=== PATIENT | female | born 1955 | race Caucasian/White ===

== ENCOUNTER → 2017-01-19 | Outpatient (CLI) | payer MEDICARE, MEDICAID ==
[~2017-01-19] MED LIST: 3N1 COMMODE MC; ASPI-781 PO; CARV25TA97 PO; METF500T4 PO; RAMI5CAP23 PO; SIMV20TA PO; WALK1EAC23 MC
--- NOTE | 2017-01-20 10:55 | RADRPT ---
PROCEDURE: XR pelvis/left hip. CLINICAL INDICATION: Hip pain TECHNIQUE: AP pelvis/lateral left hip view performed. COMPARISON: 09/11/2015 FINDINGS: There is a right total hip replacement. There is no evidence of loosening of the prosthesis. No hard lovelace failure is identified. There is mild left hip osteoarthrosis. This is associated with joint space narrowing. There is norm al osseous mineralization. No fractures or osseous lesions are identified. The soft tissues are un remarkable. IMPRESSION: Right total hip replacement. Mild left hip osteoarthrosis. RPTAT: HGDB .Norman Kwon MD, Date Time Electronically viewed and signed by .Norman Kwon MD, on 01/20/2017 10:55 .B/
--- NOTE | 2017-01-20 10:56 | RADRPT ---
PROCEDURE: XR left knee. CLINICAL INDICATION: Knee pain TECHNIQUE: AP weightbearing, lateral weightbearing and sunrise views are available for review. COMPARISON: None available FINDINGS: There is mild to moderate osteoarthrosis involving the medial tibial femoral compartment, lateral ti bial femoral compartment and patellofemoral compartment. This is associated with joint space narrowi ng, subchondral sclerosis and osteophytosis. There is otherwise normal mineralization, architecture and alignment. No fractures are identified. No osseous lesions are identified. The soft tissues are unremarkable. IMPRESSION: Mild to moderate osteoarthrosis involving the medial tibial femoral compartment, lateral tibial femo ral compartment and patellofemoral compartment. RPTAT: HGDB .Noramn Kwon MD, MD Date Time Electronically viewed and signed by .Norman Kwon MD, on 01/20/2017 10:56 .B/
== END | disposition home or self-care (01) ==
LOC: HKI 13:36
DX: M25.552 Pain in left hip (principal); M16.12 Unilateral primary osteoarthritis, left hip; Z96.641 Presence of right artificial hip joint; M25.562 Pain in left knee; M17.12 Unilateral primary osteoarthritis, left knee
CPT/HCPCS: 20610; 73502; 73562; G0463

== ENCOUNTER 2017-03-24 21:16 | Emergency (ER) | payer MEDICARE, OTHER ==
[~2017-03-24] VITALS: Ht 154.9 cm; Wt 90.9 kg
[2017-03-24 21:26] VITALS: Ht 154.9 cm; Wt 90.9 kg
--- NOTE | 2017-03-24 22:52 | ERD ---
ER Documentation Chief Complaint Date/Time DATE: 03/24/17 TIME: 22:47 Chief Complaint RT LEG PAIN & SWELLING X2 DAYS DENIES TRAUMA NO SOB HPI 61-year-old female with a history of diabetes presents with right-sided leg pain and swelling that started today. She states that it was worse on the right lateral ankle with foot swelling and ankle swelling. She states that note was noticed first when she was driving unchanging from break to paddle, worse in movement and achy. She has no calf pain no calf swelling. She has no fevers or chills. ROS All systems reviewed and are negative except as per history of present illness. Medications Home Meds Active Scripts Acetaminophen* (Tylophen*) 500 Mg Capsule, 1 CAP PO Q6H Y for PAIN AND OR ELEVATED TEMP, #20 CAP Prov:MAGGY SHELTON PA-C 03/24/17 3 N 1 Commode* (3 N 1 Commode*) 1 Each Dme, 1 EACH MC DIRECTED, #1 DME 0 Refills Prov:RUFUS RODRÍGUEZ 03/04/15 Front Wheel Walker* (Front Wheel Walker*) 1 Each Dme, 1 EACH MC DIRECTED, #1 DME 0 Refills Prov:RUFUS RODRÍGUEZ 03/04/15 Aspirin* (Ecotrin*) 325 Mg Tabec, 325 MG PO BID for 45 Days Prov:RUFUS RODRÍGUEZ 03/04/15 Reported Medications Carvedilol* (Coreg*) 25 Mg Tablet, 25 MG PO BID, TAB 03/01/15 Carvedilol* (Coreg*) 25 Mg Tablet, 25 MG PO DAILY, TAB 03/01/15 Ramipril (Altace) 5 Mg Capsule, 5 MG PO HS, CAP 03/01/15 Simvastatin* (Zocor*) 20 Mg Tablet, 20 MG PO HS, TAB 03/01/15 Metformin* (Glucophage*) 500 Mg Tab, 500 MG PO TID, TAB 03/01/15 Allergies Allergies: Coded Allergies: Iodine and Iodide Containing Produc (Verified Allergy, Unknown, ANAPHYLACTIC, 03/01/15) PMhx/Soc History of Surgery: Yes (L knee 2007, post lipoma resection RUE 2009, appendectomy) Anesthesia Reaction: No Hx Neurological Disorder: No Hx Respiratory Disorders: No Hx Psychiatric Problems: No Hx Miscellaneous Medical Probl: Yes (HTN, diabetes, hx of nephritis 20 yrs ago , hyperlipidemia) Hx Alcohol Use: No Hx Substance Use: No Hx Tobacco Use: No Smoking Status: Never smoker Physical Exam Vitals Vital Signs Date Time Temp Pulse Resp B/P Pulse Ox O2 Delivery O2 Flow Rate FiO2 03/24/17 21:26 97.8 80 18 163/91 95 Physical Exam General: Well-developed, well-nourished. The patient appears in no acute distress. HEENT: Head is normocephalic, atraumatic. No scleral icterus. Neck: Supple. Nontender. Lungs: Clear to auscultation. Normal air movement. Heart: Regular rate and rhythm. S1 and S2 are normal. No murmurs, gallops, or rubs. Abdomen: Nondistended. Soft nontender. Extremities: No clubbing or cyanosis. Moving extremities 4, no weakness, negative Homans sign, there is swelling over the right lateral ankle that goes to the dorsum of the foot. Pulses 2+ bilaterally, there is no erythema or warmth. Neurologic: Alert and oriented 3. No focal deficits. Normal speech and gait. Skin: Normal turgor. No rash or lesions. Results 24 hrs PROCEDURE: Ultrasound examination of the right lower extremity with Doppler. CLINICAL INDICATION: Right leg pain and swelling. TECHNIQUE: Multiple sonographic images of the right lower extremity were performed with garg scale and color Doppler. COMPARISON: None. FINDINGS: The right common femoral, superficial femoral and popliteal veins demonstrate normal color flow, waveforms, compression and response augmentation. There is no evidence of deep venous thrombosis. IMPRESSION: No evidence of deep venous thrombosis within the right lower extremity. Signed By: Álvaro Hodges M.D 03/24/2017 11:17:02 PM PROCEDURE: X-ray right ankle CLINICAL INDICATION: Trauma to right ankle, with reference marker directed towards the tip of the lateral malleolus. TECHNIQUE: 3 views right ankle COMPARISON: None FINDINGS: No acute fracture or dislocation. Soft tissue swelling over the lateral malleolus and anterior ankle. Plantar calcaneal enthesophyte. IMPRESSION: No acute fracture. RPTAT: UU Signed By: Barnden Thomas MD 03/24/2017 11:12:55 PM Procedures/MDM 61-year-old female presents with right-sided lower leg pain, patient's pain is localized to the lateral ankle, with swelling. X-rays are normal, no evidence of DVT, no fracture dislocation. At this time there is no warmth or erythema, there are no signs of cellulitis. Patient states that the pain started after she started driving, likely musculoskeletal injury, and ankle sprain. Patient's blood pressure was elevated (>120/80) but appears stable without evidence of hypertension emergency or urgency. The patient was counseled about the risks of hypertension and urged to pursue outpatient monitoring and therapy within a week with their primary care physician. Departure Diagnosis: Primary Impression: Right leg pain Condition: Good MAGGY SHELTON PA-C Mar 24, 2017 22:52
[2017-03-24] MEDS ORDERED: ACET500C5 PO (23:37)
[2017-03-25 00:12] VITALS: BP 152/69; PULSE 83; RESP 16; TEMP 97.9
--- NOTE | 2017-03-25 09:59 | RADRPT ---
PROCEDURE: Ultrasound examination of the right lower extremity with Doppler. CLINICAL INDICATION: Right leg pain and swelling. TECHNIQUE: Multiple sonographic images of the right lower extremity were performed with garg scal e and color Doppler. COMPARISON: None. FINDINGS: The right common femoral, superficial femoral and popliteal veins demonstrate normal color flow, wav eforms, compression and response augmentation. There is no evidence of deep venous thrombosis. IMPRESSION: No evidence of deep venous thrombosis within the right lower extremity. .Álvaro Hodges MD, MD Date Time Electronically viewed and signed by .Álvaro Hodges MD, MD on 03/24/2017 23:17 .T/
--- NOTE | 2017-03-25 09:59 | RADRPT ---
PROCEDURE: X-ray right ankle CLINICAL INDICATION: Trauma to right ankle, with reference marker directed towards the tip of the lateral malleolus. TECHNIQUE: 3 views right ankle COMPARISON: None FINDINGS: No acute fracture or dislocation. Soft tissue swelling over the lateral malleolus and anterior ankl e. Plantar calcaneal enthesophyte. IMPRESSION: No acute fracture. RPTAT: UU Physician Anna Date Time Electronically viewed and signed by Hugo Thomas Physician on 03/24/2017 23:12 RS/
== END 2017-03-25 00:13 | disposition home or self-care (01) ==
LOC: FTE 21:16
DX: M25.571 Pain in right ankle and joints of right foot (principal); I10 Essential (primary) hypertension; E11.9 Type 2 diabetes mellitus without complications; Z79.82 Long term (current) use of aspirin; Z79.84 Long term (current) use of oral hypoglycemic drugs
CPT/HCPCS: 93971

== ENCOUNTER → 2017-05-27 | Outpatient (CLI) | payer MEDICARE, OTHER ==
[~2017-05-27] MED LIST changes: +ACET500C5 PO
--- NOTE | 2017-05-27 11:23 | RADRPT ---
PROCEDURE: XR Knees. CLINICAL INDICATION: Pain. TECHNIQUE: AP, lateral, and sunrise views of the bilateral knees are available for review. COMPARISON: None available FINDINGS: there are mild osteoarthritic changes in the bilateral knees most notable in the medial and patellof emoral compartments with joint space narrowing and small osteophytes. There is no acute fracture, di slocation or osteolytic lesions. . No radiopaque foreign body is identified. Alignment is anatomic . No significant joint effusion is identified. IMPRESSION: 1. Mild osteoarthritis of the medial and patellofemoral compartments of the bilateral knees.. 2. No acute fracture or dislocation is seen. RPTAT: QQ .Barrett Carrillo MD, MD Date Time Electronically viewed and signed by .Barrett Carrillo MD, on 05/27/2017 11:23 .L/
--- NOTE | 2017-05-28 03:07 | HKNOTE ---
DATE OF SERVICE: 05/27/2017 MAIN COMPLAINT: Pain in the left knee. HISTORY OF PRESENT ILLNESS: The patient is a 61-year-old female who underwent a right total hip rep lacement which was performed by me on 03/01/2015. She had been experiencing a fever as a result of the surgery. She had no problems at all with her operated hip. Main complaint now revolves around both of her knees. The patient saw Dr. Riggins at the [facility] [place] for pain in both of her knees. He gave her cortisone injections in to the right knee on 05/07/2017. The right knee has been totally free of pain since then; the left knee continues to give her symptoms. She is here now to see me for a second opinion concerning her left knee. An MRI scan of the right knee was obtained which showed that she had a torn meniscus but Dr. Mary maradiaga told her that since she will eventually need a knee replacement anyway she should not consider ar throscopic surgery on that knee. No MRI scan was obtained on the left knee. The patient had a great deal of swelling of her right ankle. Dr. Riggins diagnosed gout. Her int ernist, , put her on "gout medications" and any ankle swelling completely resolved. PRESENT COMPLAINTS: The right knee is now symptom free. The left knee locks quite frequently and s he has to "jiggle it loose." There is no instability of the knee. She gets pain in the left knee e very day. (She has no symptoms of an internal derangement of the right knee). The pain in the left knee is occasionally severe, most of the time it is moderate. She takes Commerce for the pain. She does have a history of problems with her lower back. She has had physical therap y treatments. She has no numbness or tingling in her legs. She occasionally uses a cane (part of t he time). Leg lengths feel equal. She cannot clip her toenails or tie her shoelaces. PAST ORTHOPEDIC HISTORY: Left hip replacement by Dr. Hugo in 2014, right knee surgery "10 yea rs ago" (medial meniscus and anterior cruciate ligament). PRIOR CORTISONE INTAKE: Both knees injected on the . OTHER JOINT PROBLEMS: None. BLOOD TESTS FOR ARTHRITIS: None. PRIOR INJURIES TO HIPS OR KNEES: Possibly the right knee. PAST MEDICAL HISTORY: 1. Chronic kidney problems (nephritis). 2. Hypertension. 3. Diabetes. 4. Asthma. PAST SURGICAL HISTORY: 1. Right hip [place] [address] Hugo. 2. Left knee surgery by Dr. Rose, 06/20/2008. PRIOR DRUG ALLERGIES. IODINE. MEDICATIONS: 1. Benicar. 2. Coreg. 3. Zocor. 4. Altace. 5. Januvia. 6. Glucophage. 7. Allopurinol. FAMILY HISTORY: Noncontributory. SYSTEMS REVIEW: Prone to headaches, hypertension, diabetes, leakage of urine, ankles swell. SOCIAL HISTORY: She does not smoke or drink alcoholic beverages. PHYSICAL EXAMINATION GENERAL: The patient is a markedly overweight 61-year-old female. She comes in with her . She speaks excellent [place]. The patient's gait is normal. She walks without a walking aid. VITAL SIGNS: Height 5 feet 1 inch, weight 205 pounds. Blood pressure 140/70, temperature 98.6. HIPS: Both hips have a full range of motion without pain. RIGHT KNEE: The right knee shows normal alignment. Active and passive extension is 0 degrees. Activ e and passive flexion is 135 degrees. The medial and lateral collateral ligaments and cruciate ligam ents are intact. Sandeep test is negative. There is 1+ effusion. No pain. The patella tracks larry lly. There is no tenderness on the articular surface of the patella or in the patellar groove. The Q angle is normal. LEFT KNEE: Left knee shows normal alignment. Extension is full but painful. Flexion is 105 degrees . The medial and lateral collateral ligaments and cruciate ligaments are intact. Sandeep test is neg ative. Scars of previous operative arthroscopy and anterior cruciate ligament repair. There is 1+ e ffusion, tender over the pes bursa. The patella tracks normally. There is no tenderness on the ave cular surface of the patella or in the patellar groove. The Q angle is normal. IMAGING: Plain x-rays of both knees obtained today at the [facility] [place] were review ed (3 views). Knees show mild narrowing of the medial joint space in both knees, slightly more on t he right side. There are no secondary changes of osteoarthritis such as subchondral sclerosis, oste ophytes or intraosseous cyst formations. An MRI scan of the right knee obtained on 05/01/[address] Elie Truong as showing "complex tearing involving the posterior horn and mid zone of the medial meniscus including a large radial oriented tear adjacent to the medial meniscal root with an oblique tearing affecting the mid zone along the inferior articulating surface. There may be an additional flap tear component poste riorly." Mild tricompartmental degenerative changes with grade IV chondral loss affecting the medial compartm ent where there is marginal osteophyte formation and minimal osteophytic ridging. Similar changes a ffect the patellofemoral compartment. Large joint effusion is present. DISCUSSION: A 61-year-old overweight female who had previously undergone a left total hip replaceme nt performed by me 2 years ago. She is totally delighted with the results of surgery. She now comp lains of pain in both of her knees. She has been under the care of Dr. Riggins. He obtained an MRI scan of the right knee but not of the left knee. The patient has previously unde rgone a partial medial meniscectomy and anterior cruciate ligament repair of the left knee performed by Dr. Rose. Dr. Riggins gave her cortisone injections into both knees. The right knee settled down completely and now has no pain; the left knee continues to give her symptoms of pain as well as what quite livier jon seems to be locking. The patient's pain appears to be quite significant. Dr. Riggins told her that under circums tances she would need to have an arthroscopic surgery on the right knee, but since she is "going to need a knee replacement anyways" there is no point. No mention was made of what treatment might be needed for the left knee. In my opinion, the right knee symptoms are currently in remission possibly because the pieces of tor n meniscus are lying coapted without causing any obstruction to movement whereas on the left side sh e continues to have classic symptoms of an internal derangement. In any case, the degree of arthrit is in both knees could be graded as "less than 5 on a scale of 1 to 10." For this reason, I do not b elieve that a future knee replacement has any bearing on what treatment is needed for her current sy mptoms. The patient is being referred for an MRI scan of the left knee with gadolinium and she will be seen again after for reevaluation. The patient will be seen again next week for review after she comes in with the MRI scan. Dictated By: GEETA OLIVIA/DOREEN Conf#: [id number] DID#: [id number]
== END | disposition home or self-care (01) ==
LOC: HKI 10:32
DX: M25.562 Pain in left knee (principal); M25.462 Effusion, left knee; I10 Essential (primary) hypertension; E11.9 Type 2 diabetes mellitus without complications; Z79.84 Long term (current) use of oral hypoglycemic drugs; J45.909 Unspecified asthma, uncomplicated
CPT/HCPCS: 73562; G0463

== ENCOUNTER → 2017-06-15 | Outpatient (CLI) | payer MEDICARE, OTHER ==
--- NOTE | 2017-06-16 01:52 | HKNOTE ---
DATE OF SERVICE: The patient comes in with her MRI scan of the left knee for review. The MRI scan with gadolinium performed on 06/08/[address] Truong as showing "obliqu e grade III signal alterations affecting the posterior horn and mid zone of the medial meniscus with out discrete enhancing meniscal tear." "Partial meniscal resection of the lateral meniscus without discrete enhancing tear. Tricompartment al degenerative arthritic change including marginal osteophyte formation" Dr. Truong was contacted to discuss "oblique grade III signal alterations." He indicates that in the previously operated knee, this does not signal a torn meniscus, but signals that if there is a tear, it does not reach the surface. He indicates that an arthrogram with gadolinium in the previou sly operated knee is "only 84% reliable." DISCUSSION: The patient again notes that the left knee locks 4 to 5 times a day. There is no insta bility of the knee. She states "I can't live like this." FOOTNOTE: The patient was not able to walk very well for 4 days after the procedure "because of the gadolinium." MANAGEMENT: In my opinion, she should have an arthroscopic operation on the left knee. The symptom s are entirely compatible with a torn meniscus and 84% reliability is not sufficient for making a ra diological diagnosis. She is given the opportunity to return to the [facility] [place] for the surge ry, but she declined, stating that she "doesn't like that place." The patient is being referred to Dr. Tsai for arthroscopic surgery on the knee. Dictated By: GEETA OLIVIA/DOREEN Conf#: [id number] DID#: [id number]
== END | disposition home or self-care (01) ==
LOC: HKI 09:57
DX: S83.242A Other tear of medial meniscus, current injury, left knee, initial encounter (principal); X58.XXXA Exposure to other specified factors, initial encounter